=== PATIENT | female | born 1990 | race Caucasian/White ===

== ENCOUNTER 2016-10-14 19:54 | Emergency (ER) | payer OTHER ==
[2016-10-14 20:01] VITALS: BP 117/79; PULSE 87; TEMP 97.9; BMI 19.5
[2016-10-14] MEDS ORDERED: ONDANSETRON 4 MG/2 ML VIAL IVPUSH ONE (20:02)
[2016-10-14] MEDS ORDERED: SODIUM CHLORIDE 1,000 ML IV STA (20:03)
[2016-10-14 21:06] LABS: BASOPHIL 0.3 % (0-2.0); MCH 28.1 pg (25.7-33.7); MCHC 33.5 g/dl (32.0-36.0); MEAN CELL VOLUME 83.9 fl (80-96); MEAN PLT VOLUME 8.6 fl (7.5-11.1); NEUTROPHILS 92.2 % (42.8-82.8); PLATELET COUNT 277 K/MM3 (134-434); RDW 13.4 % (11.6-15.6)
[2016-10-14 21:14] LABS: URINE APPEARANCE CLOUDY; URINE BILIRUBIN NEGATIVE (NEGATIVE); URINE BLOOD NEGATIVE (NEGATIVE); URINE COLOR YELLOW; URINE GLUCOSE (UA) 1+ (NEGATIVE); URINE KETONE 2+ (NEGATIVE); URINE NITRITE NEGATIVE (NEGATIVE); URINE UROBILINOGEN NEGATIVE E.U./dl (0.2-1.0)
[2016-10-14 21:15] LABS: URINE LEUK ESTERASE 2+ (NEGATIVE); URINE PROTEIN 1+ (NEGATIVE)
[2016-10-14 21:18] LABS: URINE BACTERIA MANY /hpf (NONE SEEN); URINE MUCUS FEW; URINE RBC 14 /hpf (0-3); URINE WBC 52 /hpf (3-5)
[2016-10-14 21:28] LABS: ALBUMIN 4.1 g/dl (3.4-5.0); ALK PHOS 64 U/L (45-117); ANION GAP 9 (8-16); BILIRUBIN,TOTAL 0.4 mg/dL (0.2-1.0); CO2 25 mmol/L (21-32); CREATININE 0.7 mg/dL (0.55-1.02); GLUCOSE,RANDOM 118 mg/dL (74-106); SGOT/AST 13 U/L (15-37); SGPT/ALT 20 U/L (12-78); TOT PROT 7.5 g/dl (6.4-8.2)
[2016-10-14] MEDS ORDERED: KETOROLAC TROMETHAMINE 30 MG/1 ML VIAL ONE (21:28)
[2016-10-14] MEDS ORDERED: ONDANSETRON 4 MG/2 ML VIAL ONE (21:28)
[2016-10-14] MEDS ORDERED: KETOROLAC TROMETHAMINE 30 MG/1 ML VIAL IVPUSH ONE (21:37)
[2016-10-14] MEDS ORDERED: SULFAMETHOXAZOLE/TRIMETHOPRIM 800MG/160MG D.S. TABLET PO ONE (23:08)
--- NOTE | 2016-10-14 23:30 | PDOC ---
History of Present Illness - General History Source: Patient Exam Limitations: No Limitations - History of Present Illness Initial Comments: 10/14/16 23:52 The patient is a 26 year old female, with no significant past medical history, who presents to the emergency department complaining of 1 week of left sided lower back pain. The patient reports she visited an urgent care facility earlier today, where she was found to have an elevated WBC count, for which she was sent to the ED for further evaluation. The patient reports associated LLQ abdominal pain, which is exacerbated with LLQ pressure. The patient reports associated nausea, but denies vomiting, diarrhea, or constipation. The patient denies any fever, chills, cough, headache, or dizziness. The patient denies any dysuria, hematuria, frequency, or urgency. Allergies: None reported. Past Surgical History: None reported. Social History: Non-smoker. Denies alcohol or drug use. <Jackie Delatorre - Last Filed: 10/14/16 23:51> <Kyra Ponce - Last Filed: 10/14/16 23:57> - General Chief Complaint: Pain Stated Complaint: PCP SENT/EVALUATION Time Seen by Provider: 10/14/16 19:58 Past History <Jackie Delatorre - Last Filed: 10/14/16 23:51> - Psycho/Social/Smoking Cessation Hx Anxiety: No Suicidal Ideation: No Smoking History: Never smoked Have you smoked in the past 12 months: No Information on smoking cessation initiated: No Hx Alcohol Use: No Drug/Substance Use Hx: No Substance Use Type: None <Kyra Ponce - Last Filed: 10/14/16 23:57> - Past Medical History Allergies/Adverse Reactions: Allergies Allergy/AdvReac Type Severity Reaction Status Date / Time No Known Allergies Allergy Verified 10/14/16 19:59 Review of Systems - Review of Systems Able to Perform ROS?: Yes Comments:: 10/14/16 23:52 CONSTITUTIONAL: Absent: fever, no chills, no fatigue EYES: Absent: visual changes ENT: Absent: ear pain, no sore throat CARDIOVASCULAR: Absent: chest pain, no palpitations RESPIRATORY: Absent: cough, no SOB GI: Present: +Left lower quadrant abdominal pain Absent: no nausea, no vomiting, no constipation, no diarrhea GENITOURINARY: Present: +Left flank pain Absent: dysuria, no frequency, no hematuria MUSKULOSKELETAL: Absent: no arthralgia, no myalgia SKIN: Absent: rash NEURO: Absent: headache <Jackie Delatorre - Last Filed: 10/14/16 23:51> *Physical Exam - Vital Signs Last Vital Signs Temp Pulse Resp BP Pulse Ox 97.9 F 87 18 117/79 100 10/14/16 19:59 10/14/16 19:59 10/14/16 19:59 10/14/16 19:59 10/14/16 19:59 - Physical Exam Comments: 10/14/16 23:53 GENERAL: Well-appearing, well-nourished. No apparent distress. HEENT: Normocephalic, atraumatic. PERRL, EOM intact. CARDIOVASCULAR: Normal S1, S2. Regular rate and rhythm. PULMONARY: Clear to auscultation bilaterally. ABDOMEN: Soft, non-distended. Tenderness to palpation to the LLQ. MUSCULOSKELETAL Normal range of motion at all joints. No bony deformities or tenderness. No CVA tenderness. Tenderness to the left paraspinal muscle. EXTREMITIES: Normal ROM in all four extremities. No gross deformities. SKIN: Warm, dry. No rash NEUROLOGICAL: No focal neurological deficits. <Jackie Delatorre - Last Filed: 10/14/16 23:51> - Vital Signs Last Vital Signs Temp Pulse Resp BP Pulse Ox 97.9 F 87 18 117/79 100 10/14/16 19:59 10/14/16 19:59 10/14/16 19:59 10/14/16 19:59 10/14/16 19:59 <Kyra Ponce - Last Filed: 10/14/16 23:57> ED Treatment Course - LABORATORY CBC & Chemistry Diagram: 10/14/16 20:11 10/14/16 20:11 - ADDITIONAL ORDERS Additional order review: Laboratory Results 10/14/16 10/14/16 10/14/16 20:11 20:11 20:11 Sodium 136 Potassium 4.0 Chloride 102 Carbon Dioxide 25 Anion Gap 9 BUN 7 Creatinine 0.7 Creat Clearance w eGFR > 60 Random Glucose 118 H Calcium 9.0 Total Bilirubin 0.4 AST 13 L ALT 20 Alkaline Phosphatase 64 Total Protein 7.5 Albumin 4.1 Urine Color Yellow Urine Appearance Cloudy Urine pH 7.0 Ur Specific [place] 1.025 Urine Protein 1+ H Urine Glucose (UA) 1+ H Urine Ketones 2+ H Urine Blood Negative Urine Nitrite Negative Urine Bilirubin Negative Urine Urobilinogen Negative Ur Leukocyte Esterase 2+ H Urine RBC 14 Urine WBC 52 Ur Epithelial Cells Moderate Urine Bacteria Many Urine Mucus Few Urine HCG, Qual Negative 10/14/16 20:11 RBC 4.73 MCV 83.9 MCHC 33.5 RDW 13.4 MPV 8.6 Neutrophils % 92.2 H Lymphocytes % 5.6 L Monocytes % 1.9 L Eosinophils % 0.0 Basophils % 0.3 - RADIOLOGY Radiograph Interpretation: 10/14/16 23:51 EXAM: Pelvic US INTERPRETED BY: Dr. Ashley REVIEWED BY: Dr. Ponce IMPRESSION: Retroverted uterus with normal thickness of the endometrial stripe. Both ovaries are enlarged with multiple large complex cysts, as described above that may represent hemorrhagic cysts. Correlation with MRI of the pelvis or a follow-up ultrasound in first week of the next menstrual cycle is recommended. - Medications Given in the ED: ED Medications Discontinued Medications Generic Name Dose Route Start Last Admin Trade Name Freq PRN Reason Stop Dose Admin Sodium Chloride 1,000 mls @ 1,000 mls/hr 10/14/16 20:03 10/14/16 21:36 Normal Saline - IV 10/14/16 21:02 1,000 mls/hr ASDIR STA Administration Ketorolac Tromethamine 30 mg 10/14/16 21:37 10/14/16 21:37 Toradol Injection - IVPUSH 10/14/16 21:38 30 mg NOW ONE Administration Ondansetron HCl 4 mg 10/14/16 20:02 10/14/16 21:36 Zofran Injection IVPUSH 10/14/16 20:03 4 mg ONCE ONE Administration <Jackie Delatorre - Last Filed: 10/14/16 23:51> - LABORATORY CBC & Chemistry Diagram: 10/14/16 20:11 10/14/16 20:11 - ADDITIONAL ORDERS Additional order review: Laboratory Results 10/14/16 10/14/16 10/14/16 20:11 20:11 20:11 Sodium 136 Potassium 4.0 Chloride 102 Carbon Dioxide 25 Anion Gap 9 BUN 7 Creatinine 0.7 Creat Clearance w eGFR > 60 Random Glucose 118 H Calcium 9.0 Total Bilirubin 0.4 AST 13 L ALT 20 Alkaline Phosphatase 64 Total Protein 7.5 Albumin 4.1 Urine Color Yellow Urine Appearance Cloudy Urine pH 7.0 Ur Specific [place] 1.025 Urine Protein 1+ H Urine Glucose (UA) 1+ H Urine Ketones 2+ H Urine Blood Negative Urine Nitrite Negative Urine Bilirubin Negative Urine Urobilinogen Negative Ur Leukocyte Esterase 2+ H Urine RBC 14 Urine WBC 52 Ur Epithelial Cells Moderate Urine Bacteria Many Urine Mucus Few Urine HCG, Qual Negative 10/14/16 20:11 RBC 4.73 MCV 83.9 MCHC 33.5 RDW 13.4 MPV 8.6 Neutrophils % 92.2 H Lymphocytes % 5.6 L Monocytes % 1.9 L Eosinophils % 0.0 Basophils % 0.3 - RADIOLOGY Radiology Studies Ordered: Category Date Time Status TRANSVAGINAL ULTRASOUND US [US] Stat Ultrasound 10/14/16 21:31 Taken - Medications Given in the ED: ED Medications Discontinued Medications Generic Name Dose Route Start Last Admin Trade Name Freq PRN Reason Stop Dose Admin Sodium Chloride 1,000 mls @ 1,000 mls/hr 10/14/16 20:03 10/14/16 21:36 Normal Saline - IV 10/14/16 21:02 1,000 mls/hr ASDIR STA Administration Ketorolac Tromethamine 30 mg 10/14/16 21:37 10/14/16 21:37 Toradol Injection - IVPUSH 10/14/16 21:38 30 mg NOW ONE Administration Ondansetron HCl 4 mg 10/14/16 20:02 10/14/16 21:36 Zofran Injection IVPUSH 10/14/16 20:03 4 mg ONCE ONE Administration <Kyra Ponce - Last Filed: 10/14/16 23:57> *DC/Admit/Observation/Transfer - Attestations Scribe Attestion: 10/14/16 23:53 Documentation prepared by Jackie Delatorre, acting as medical receptionist biller for Kyra Ponce MD. <Jackie Delatorre - Last Filed: 10/14/16 23:51> <Kyra Ponce - Last Filed: 10/14/16 23:57> Diagnosis at time of Disposition: Urinary tract infection Qualifiers: Urinary tract infection type: site unspecified Hematuria presence: without hematuria Qualified Code(s): N39.0 - Urinary tract infection, site not specified Cyst of ovary Qualifiers: Laterality: bilateral Qualified Code(s): N83.20 - Unspecified ovarian cysts - Discharge Dispostion Disposition: HOME Condition at time of disposition: Stable - Patient Instructions Printed Discharge Instructions: DI for Urinary Tract Infection (UTI), DI for Ovarian Cyst Additional Instructions: please leaf size picker your antibiotics at your pharmacy Follow up with your doctor for repeat urinalysis to make sure the infection responded to the antibiotics See your college sc[employer] coordinator to arrange for a repeat pelvic ultrasound
[2016-10-15] MEDS ORDERED: LEVOFLOXACIN 500 MG IVPB 100 ML IVPB ONE ×2 (00:01→00:02)
== END 2016-10-15 00:47 | disposition home or self-care (01) ==
LOC: JER 19:54
PROC: 3E03329 Introduction of Other Anti-infective into Peripheral Vein, Percutaneous Approach (ICD-10-PCS; principal; 2016-10-14)
PROC: 3E0333Z Introduction of Anti-inflammatory into Peripheral Vein, Percutaneous Approach (ICD-10-PCS; 2016-10-14)
PROC: 3E033GC Introduction of Other Therapeutic Substance into Peripheral Vein, Percutaneous Approach (ICD-10-PCS; 2016-10-14)
DX: N39.0 Urinary tract infection, site not specified (principal); N83.292 Other ovarian cyst, left side; N83.291 Other ovarian cyst, right side
CPT/HCPCS: 36415; 76830-TC; 80053; 81003; 81015; 84703; 85025; 87077; 87086; 99281-25; 99283-25